=== PATIENT | male | born 1940 | race Caucasian/White ===

== ENCOUNTER → 2016-06-14 | Outpatient (CLI) | payer OTHER ==
[~2016-06-14] VITALS: Ht 182.9 cm; Wt 111.9 kg
[~2016-06-14] MED LIST: ASPIR 8181 MG PO; BACTROBAN CREAM30 G1 TOP; GABAPENTIN100 MG PO; HYDROCHLOROTH12.5 M1 PO; HYDROCHLOROTHIA25 M1 PO; IBUPROFEN 200200 M1 PO; LINZESS145 MCG PO; LISINOPRIL20 MG PO; LOTRISONE CREAM15 GM TP; MILK OF MA2400 MG/10 PO; MOBIC15 MG PO; NEXIUM40 MG PO; NORCO 5-325 TA1 EACH PO; NORVASC5 MG PO; TOPROL XL100 MG PO; TRAMADOL 50 MG50 MG PO
--- NOTE | ~2016-06-14 | HPC ---
[facility] [place] [address] PAIN MANAGEMENT CONSULTATION Name: MARITZA KENDRICK Room #: REG [place] Alex#: [id number] Admission: 06/14/16 Attend Phys: Maximiliano Ware MD Discharge: Date of : 42 Report #: [id number] THIS REPORT FOR: //name// CC: Wil Ware MD DATE OF SERVICE: 06/14/2016 Followup visit for chronic low back pain status post laminectomy with radiculopathy. The patient returns to pain clinic for epidural injection. His last visit here was over 2 years ago. He reports that injection provided him quite a bit of pain relief. Certainly not for 2 years, but the pain is now bad enough, he would like another injection. He describes an aching, sharp, numbness and weakness in his legs, it radiates to the ankles with burning. It is difficult for him to stand. He scores his intensity at 8. HISTORY OF PRESENT ILLNESS: Pain score is 8. I have spoken with his and she says that he is really having a lot of trouble getting up and standing, walking is really-really challenging. He is using a four-wheel walker. Previously, we have provided an epidural for him with good improvement. We are hopeful that today it is going to be the same that he will get some improvement in his ability to bear weight with less pain. He still has a long way to go. He is deconditioned. MEDICATIONS: Norvasc, Linzess, tramadol, ibuprofen, hydrochlorothiazide, Aspirin, Nexium, and Toprol. ALLERGIES: LUKAS INHIBITORS AND LOSARTAN. PAST MEDICAL HISTORY: Remarkable for arthritis and hypertension. PAST SURGICAL HISTORY: Remarkable for L3-L4 surgery in 12/1998. He had an inguinal hernia repair. SOCIAL HISTORY: He is retired . Denies use of tobacco or alcohol products. He lives in his own home with his , but he is becoming more and more debilitated. She has had to call Fire Department when he has fallen in the past. PHYSICAL EXAMINATION: GENERAL: He is a very affable 75-year-old and with a strong [place] accent. Shows no signs of anxiety or depression today during our discussions. VITAL SIGNS: His blood pressure is 131/66, heart rate 60 and BMI is 33.5. [address] [address] PAIN MANAGEMENT CONSULTATION Name: MIREILLEMARITZA Hong Room #: REG [facility].#: [id number] Admission: 06/14/16 Attend Phys: Maximiliano Ware MD Discharge: Date of : 42 Report #: [id number] CHEST: Clear. CARDIAC: Rhythm is regular. EXTREMITIES: He has a large panniculus. He has trouble with even getting his pants up. Standing is difficult for him at the bedside. He has trouble getting out of the chair and uses his arms to help push up. I did not have him walk because I felt that he was a fall risk. Tenderness across the low back and the scar is noted. Positive straight leg raising is present bilaterally. IMPRESSION: 1. Lumbar radiculopathy, chronic post-laminectomy syndrome. 2. Hypertension. 3. Morbid obesity. 4. Debilitation. PLAN: Epidural steroid injection at the level above his surgery. After informed consent, the patient was taken to fluoroscopic suite for treatment. He was placed prone, skin was prepped with ChloraPrep. Skin anesthetized over L2-L3 and a 20-gauge Tuohy epidural needle was advanced first attempt in the epidural space with loss of resistance. No blood or CSF aspirated. A 1 mL of Omnipaque was injected with excellent spread of dye observed in the epidural space followed by 3 mL of lidocaine mixed with 80 mg triamcinolone. He tolerated the procedure well and was observed for 45 minutes and discharged. Followup visit planned as needed. May consider another injection in the next 3-4 months depending on his response. Certainly, I do not think at this time he is a surgical candidate so whatever we can provide him in terms of his noninvasive treatments, I think it would be worthwhile. Physical therapy would be helpful, but I do not think he is really a candidate until we can get his pain more under control. By: [id number] Maximiliano Ware MD /nt
[2016-06-14 14:26] VITALS: BP 131/66
== END ==
LOC: PAIN 07:55
DX: M54.16 Radiculopathy, lumbar region (principal); M96.1 Postlaminectomy syndrome, not elsewhere classified; I10 Essential (primary) hypertension; E66.01 Morbid (severe) obesity due to excess calories; Z68.33 Body mass index [BMI] 33.0-33.9, adult

== ENCOUNTER 2017-03-21 17:30 | Inpatient (IN) | payer OTHER ==
[~2017-03-21] VITALS: Ht 182.9 cm; Wt 99.8 kg
--- NOTE | ~2017-03-21 | EKG ---
[address] [address] ELECTROCARDIOGRAM REPORT Name: MIREILLEMARITZA HAYS Room #: 402-P [facility] IN M.R.#: [id number] Admission: 03/21/17 Attend Phys: Wil Rose MD Discharge: Date of : 41 Report #: [id number] THIS REPORT FOR: //name// [facility] ED Test Date: 2017-03-21 Test Time: 18:14:13 Pat Name: MARITZA KENDRICK Department: Room: 402 Gender: M Crabbing Machine Operator: CADENCE : 1940 Requested By: Brandt Branch Order Number: [id number] MD: Philippe Boyer Measurements Intervals [place] Rate: 56 P: -21 SD: 199 QRS: -54 QRSD: 146 T: 33 QT: 490 QTc: 473 Interpretive Statements Sinus bradycardia Atrial premature complexes RBBB and LAFB Compared to ECG 10/02/2011 04:26:40 Atrial premature complex(es) now present Left anterior fascicular block now present Electronically Signed On 03-22-2017 7:54:09 NON LICENSED NUCLEAR PLANT OPERATOR by Philippe Boyer [email or web address] <ELECTRONICALLY SIGNED> By: Philippe Boyer MD, [facility] 03/22/17 0754 1814 181 Philippe Boyer MD, [facility] /EPI
[2017-03-21 17:50] VITALS: BP 171/80
[2017-03-21 18:05] LABS: URINE BLOOD 1+ (Negative); URINE CLARITY CLEAR; URINE COLOR YELLOW; URINE GLUCOSE-RANDOM* NEGATIVE (Negative); URINE KETONES 2+ (Negative); URINE LEUKOCYTES-REFLEX NEGATIVE (Negative); URINE NITRITE-REFLEX NEGATIVE (Negative); URINE PROTEIN (DIPSTICK) 2+ (Negative); URINE SPECIFIC GRAVITY 1.025 (1.005-1.035)
[2017-03-21 18:07] LABS: URINE BILIRUBIN NEGATIVE (Negative)
[2017-03-21 18:20] LABS: BACTERIA-REFLEX 1-9 Few /HPF (None Seen); CASTS None Seen /LPF (None Seen); CRYSTALS None Seen /LPF (None Seen); SQUAMOUS None Seen /LPF (0-3); URINE RBC 0-2 Rare /HPF (0-2); URINE WBC-REFLEX 0-5 Rare /HPF (0-5)
[2017-03-21 18:44] LABS: HEMATOCRIT 43.3 % (42.0-52.0); HEMOGLOBIN 16.1 gm/dL (14.0-18.0); MCH 34.6 pg (26.0-34.0); MCHC 37.2 g/dL (28.0-37.0); PLATELET COUNT 190 thou/uL (150-400); RBC 4.66 mil/uL (4.50-6.00); RDW 13.3 % (10.5-14.5); WBC 7.7 thou/uL (4.0-11.0)
[2017-03-21 19:12] LABS: ABSOLUTE NEUTROPHILS 5.6 thou/uL (1.4-8.2); ATYPICAL LYMPHS 1 %
[2017-03-21 20:08] VITALS: BP 171/80
[2017-03-21 20:24] VITALS: BP 160/88
[2017-03-21 21:30] VITALS: BP 154/91
[2017-03-22 04:00] VITALS: BP 107/55
[2017-03-22 06:21] LABS: ALBUMIN 3.3 g/dL (3.4-5.0); CREATININE 0.6 mg/dL (0.7-1.3); TOTAL BILIRUBIN 1.6 mg/dL (<0.1-1.0)
[2017-03-22 06:24] LABS: POTASSIUM 2.8 mmol/L (3.5-5.1)
[2017-03-22 07:07] VITALS: BP 165/89
[2017-03-22 15:34] VITALS: BP 156/86
[2017-03-22 20:00] VITALS: BP 146/74
[2017-03-23 04:00] VITALS: BP 155/86
[2017-03-23 07:20] VITALS: BP 149/87
[2017-03-23 09:29] LABS: HEMATOCRIT 45.6 % (42.0-52.0); HEMOGLOBIN 16.1 gm/dL (14.0-18.0); MCH 33.4 pg (26.0-34.0); MCHC 35.4 g/dL (28.0-37.0); MCV 94.4 fL (80.0-100.0); PLATELET COUNT 205 thou/uL (150-400); RBC 4.83 mil/uL (4.50-6.00); RDW 13.1 % (10.5-14.5); WBC 8.2 thou/uL (4.0-11.0)
[2017-03-23 09:36] LABS: CALCIUM 8.4 mg/dL (8.5-10.1); CREATININE 0.5 mg/dL (0.7-1.3)
[2017-03-23 09:41] LABS: POTASSIUM 2.8 mmol/L (3.5-5.1)
[2017-03-23 09:57] LABS: ABSOLUTE NEUTROPHILS 5.4 thou/uL (1.4-8.2); METAMYELOCYTES 1 %; MYELOCYTES 1 %
[2017-03-23 14:55] VITALS: BP 111/61
[2017-03-23 15:23] LABS: MAGNESIUM 1.7 mg/dL (1.8-2.4); POTASSIUM 3.3 mmol/L (3.5-5.1)
[2017-03-23 20:00] VITALS: BP 149/74
[2017-03-23 22:07] LABS: MAGNESIUM 1.7 mg/dL (1.8-2.4); POTASSIUM 3.7 mmol/L (3.5-5.1)
[2017-03-24 04:00] VITALS: BP 150/82
[2017-03-24 06:06] LABS: HEMATOCRIT 44.6 % (42.0-52.0); HEMOGLOBIN 15.9 gm/dL (14.0-18.0); MCH 33.9 pg (26.0-34.0); MCHC 35.6 g/dL (28.0-37.0); MCV 95.3 fL (80.0-100.0); RBC 4.68 mil/uL (4.50-6.00); WBC 5.1 thou/uL (4.0-11.0)
[2017-03-24 06:13] LABS: CALCIUM 8.4 mg/dL (8.5-10.1); CREATININE 0.5 mg/dL (0.7-1.3); POTASSIUM 4.1 mmol/L (3.5-5.1)
[2017-03-24 08:24] VITALS: BP 166/94
[2017-03-24 17:17] VITALS: BP 151/87
[2017-03-24 19:45] VITALS: BP 146/84
[2017-03-25 01:09] LABS: ADENOVIRUS Negative (Negative); INFLUENZA A Negative (Negative); INFLUENZA B Negative (Negative); METAPNEUMOVIRUS Negative (Negative); PARAINFLUENZA 1 Negative (Negative); PARAINFLUENZA 2 Negative (Negative); PARAINFLUENZA 3 Negative (Negative); RHINOVIRUS Negative (Negative); RSV A Negative (Negative); RSV B Negative (Negative)
[2017-03-25 04:20] VITALS: BP 165/93
[2017-03-25 07:11] VITALS: BP 160/100
[2017-03-25 07:50] VITALS: BP 160/100
[2017-03-25] MEDS ORDERED: CEFDINIR300 MG PO (13:26)
[2017-03-25] MEDS ORDERED: PREDNISONE 10 M10 MG PO (13:27)
[2017-03-25] MEDS ORDERED: DUONEB 2.5-0.5 M3 ML INH (13:27)
[2017-09-16] MEDS ORDERED: VITAMIN B-12500 MC5 SUBLING ×2 (07:50→10:12)
[2017-09-16] MEDS ORDERED: DEMADEX 2020 MG/1 TA PO ×2 (07:50→10:12)
[2017-09-16] MEDS ORDERED: ERGOCALCIF50000 UNIT PO ×2 (07:50→10:12)
[2017-09-16] MEDS ORDERED: FLOMAX0.4 MG PO (10:12)
[2017-09-16] MEDS ORDERED: FOLIC ACID 1 MG1 MG PO (10:12)
[2017-09-16] MEDS ORDERED: SYNTHROID25 MC1 PO (10:12)
[2017-09-16] MEDS ORDERED: CIPRO250 M1 PO (10:12)
[2017-09-16] MEDS ORDERED: COLACE 100 MG100 MG PO (10:12)
[2017-09-16] MEDS ORDERED: PROBIOTIC1 EAC1 PO (10:12)
[2017-09-16] MEDS ORDERED: POTASSIUM20 PO (10:12)
== END 2017-03-25 15:06 | DRG 871 ==
LOC: ER 17:30 → EROBS 19:53 → 4N 19:53
PROVIDERS: Emergency Medicine; Hospitalist; Nurse Practitioner Acute Care
DX: A41.9 Sepsis, unspecified organism (principal); J18.9 Pneumonia, unspecified organism; E87.1 Hypo-osmolality and hyponatremia; F10.10 Alcohol abuse, uncomplicated; I10 Essential (primary) hypertension; K59.00 Constipation, unspecified; E87.6 Hypokalemia; W18.39XA Other fall on same level, initial encounter; Y93.89 Activity, other specified; Y92.098 Other place in other non-institutional residence as the place of occurrence of the external cause; Z79.899 Other long term (current) drug therapy; Z88.8 Allergy status to other drugs, medicaments and biological substances; Y99.8 Other external cause status; Z28.21 Immunization not carried out because of patient refusal
CPT/HCPCS: 10091

== ENCOUNTER 2017-08-31 04:16 | Inpatient (IN) | payer OTHER ==
[~2017-08-31] VITALS: Ht 182.9 cm; Wt 103.6 kg
[2017-08-31] VITALS (7 sets, daily range): BP systolic 107–156; BP diastolic 53–83
--- NOTE | ~2017-08-31 | EKG ---
[address] [place] [address] ELECTROCARDIOGRAM REPORT Name: MIREILLEMARITZA Hal Room #: 217-P [facility] IN M.R.#: [id number] Admission: 08/31/17 Attend Phys: Ady Yañez MD Discharge: Date of : 41 Report #: [id number] THIS REPORT FOR: //name// [facility] Test Date: 2017-08-31 Test Time: 11:13:38 Pat Name: MARITZA KENDRICK Department: Room: Gender: Semiconductor Wafer Inspector: Hal CASTELAN : 1940 Requested By: Ady Yañez Order Number: [id number] MD: Philippe Boyer Measurements Intervals [place] Rate: 131 P: [place]: QRS: -51 QRSD: 146 T: 190 QT: 319 QTc: 471 Interpretive Statements Sinus bradycardia with first-degree AV block Right bundle branch block Leftward axis Artifact in multiple lead(s) Compared to ECG 08/31/2017 06:20:13 No significant change was found Electronically Signed On 08-31-2017 16:15:01 CDT by Philippe Boyer [email or web address] <ELECTRONICALLY SIGNED> By: Philippe Boyer MD, [facility] 08/31/17 1615 1113 1113 Philippe Boyer MD, [facility] /EPI
--- NOTE | ~2017-08-31 | EKG ---
[address] [place] [address] ELECTROCARDIOGRAM REPORT Name: MARITZA KENDRICK Room #: 217-P [facility] IN M.R.#: [id number] Admission: 08/31/17 Attend Phys: Ady Yañez MD Discharge: Date of : 41 Report #: [id number] THIS REPORT FOR: //name// [facility] ED Test Date: 2017-08-31 Test Time: 06:20:13 Pat Name: MARITZA WILSONIPES Department: Room: Gender: M Carpet Mechanic: chelo : 1940 Requested By: Brandt Branch Order Number: [id number] MD: Philippe Boyer Measurements Intervals [place] Rate: 142 P: [place]: QRS: -43 QRSD: 110 T: 148 QT: 299 QTc: 460 Interpretive Statements Sinus bradycardia with first-degree AV block Right bundle-branch block Electronically Signed On 08-31-2017 7:57:37 CDT by Philippe Boyer Compared to ECG 03/21/2017 18:14:13 Atrial premature complex(es) no longer present Left anterior fascicular block no longer present Electronically Signed On 09-01-2017 8:06:33 CDT by Philippe Boyer [email or web address] <ELECTRONICALLY SIGNED> By: Philippe Boyer MD, [facility] 09/01/1706 9 9 Philippe Boyer MD, [facility] /EPI
--- NOTE | ~2017-08-31 | EKG ---
[address] [place] [address] ELECTROCARDIOGRAM REPORT Name: MARITZA KENDRICK Room #: 217- ADM IN M.R.#: [id number] Admission: 08/31/17 Attend Phys: Ady Yañez MD Discharge: Date of : 42 Report #: [id number] THIS REPORT FOR: //name// [facility] Test Date: 2017-08-31 Test Time: 11:13:38 Pat Name: MARITZA KENDRICK Department: Room: 217 P Gender: M Merchandise Director: Hal CASTELAN : 1940 Requested By: Sarah Leal Order Number: [id number] MD: Philippe Boyer Measurements Intervals [place] Rate: 131 P: [place]: QRS: -51 QRSD: 146 T: 190 QT: 319 QTc: 471 Interpretive Statements Sinus bradycardia with first-degree AV block Right bundle branch block Leftward axis Artifact in multiple lead(s) Electronically Signed On 08-31-2017 16:15:01 CDT by Philippe Boyer Compared to ECG 08/31/2017 06:20:13 Left-axis deviation now present Electronically Signed On 09-01-2017 8:08:47 CDT by Philippe Boyer [email or web address] <ELECTRONICALLY SIGNED> By: Philippe Boyer MD, FAC 09/01/17 0808 1113 1113 Philippe Boyer MD, FAC /EPI
--- NOTE | ~2017-08-31 | 2DMMODE ---
[facility] [address] [place] [address] 2 D/M-MODE ECHOCARDIOGRAM Name: MARITZA KENDRICK Room #: 217-P [facility] IN .R.#: [id number] Admission: 08/31/17 Attend Phys: Ady Yañez MD Discharge: Date of : 42 Date of Service: 09/01/17 1253 Report #: [id number] THIS REPORT FOR: //name// APPROVED REPORT Study performed: 09/01/2017 09:12:01 EXAM: Comprehensive 2D, Doppler, and color-flow Echocardiogram Patient Location: Echo lab Room #: [facility] Status: routine BSA: 2.31 HR: 57 bpm BP: 151/61 mmHg Other Information Study Quality: Technically Difficult Technically limited study due to body habitus. Indications Atrial Fibrillation Hypertension/HDD Echo Enhancing Agent Indication: Endocardial border delineation Agent(s) / Amount(s) Used: Optison 3 cc 2D Dimensions RVDd: 37.75 mm LVEF(%): 64.45 (>50%) IVSd: 12.19 (7-11mm) LVOT Diam: 28.39 (18-24mm) LVDd: 49.30 mm PWd: 11.51 (7-11mm) Ascending Ao: 29.12 (22-36mm) LVDs: 31.91 (25-40mm) Aortic Root: 33.84 mm IVC: 23.00 mm Franklin's LVEF: 64.45 % Volumes Left Atrial Volume (Systole) Single Plane 4CH: 62.30 mL Single Plane 2CH: 38.96 mL LA ESV Index: 25.00 mL/m2 Aortic Valve AoV Peak Arun.: 1.61 m/s AO Peak Gr.: 10.54 mmHg LVOT Max P.92 mmHg LVOT Max V: 1.32 m/s [facility] [place] [address] 2 D/M-MODE ECHOCARDIOGRAM Name: MARITZA KENDRICK Room #: 217-P [facility] IN .R.#: [id number] Admission: 08/31/17 Attend Phys: Ady Yañez MD Discharge: Date of : 42 Date of Service: 09/01/17 1253 Report #: [id number] DAVIDE Vmax: 5.18 cm2 Mitral Valve E/A Ratio: 1.2 MV Decel. Time: 212.40 ms MV E Max Arun.: 1.04 m/s MV A Arun.: 0.86 m/s MV PHT: 61.59 ms IVRT: 87.66 ms Pulmonary Valve PV Peak Arun.: 1.30 m/s PV Peak Gr.: 6.74 mmHg Pulmonary Vein P Vein S: 0.35 m/s P Vein A: 0.13 m/s P Vein D: 0.48 m/s P Vein A Dur.: 124.6 msec P Vein S/D Ratio: 0.73 Tricuspid Valve RAP Estimate: 10.00 mmHg Left Ventricle The left ventricle is normal size. Regional wall motion is not well visualized but grossly normal. Mild concentric left ventricular hypertrophy. The left ventricular systolic function is normal. The left ventricular ejection fraction is within the normal range. LVEF is 60-65%. Grade II - pseudonormal filling dynamics. Right Ventricle The right ventricle is normal size. Right ventricular function cannot be assessed due to poor image quality. Atria The left atrium size is normal. Right atrium is borderline dilated. Aortic Valve The aortic valve is not well visualized. No aortic regurgitation is present. There is no aortic valvular stenosis. Mitral Valve Mild mitral annular calcification Trace mitral regurgitation per doppler. No evidence of mitral valve stenosis. Tricuspid Valve The tricuspid valve is normal in structure. Trace tricuspid [facility] [address] [place] [address] 2 D/M-MODE ECHOCARDIOGRAM Name: MARITZA KENDRICK Room #: 217-P [facility] IN .R.#: [id number] Admission: 08/31/17 Attend Phys: Ady Yañez MD Discharge: Date of : 41 Date of Service: 09/01/17 1253 Report #: [id number] regurgitation. Unable to assess PA pressure. Pulmonic Valve Pulmonic valve is not well visualized. Great Vessels The aortic root is normal in size. IVC is dilated and collapses >50% with inspiration. Pericardium There is no pericardial effusion. <Conclusion> The left ventricular systolic function is normal. Regional wall motion is not well visualized but grossly normal. LVEF is 60-65%. Moderate diastolic dysfunction The aortic valve is not well visualized. No aortic regurgitation or stenosis Mild mitral annular calcification Trace mitral regurgitation per doppler. There is no pericardial effusion. <ELECTRONICALLY SIGNED> By: Philippe Boyer MD, FACC 09/01/17 1253 1253 1253 Philippe Boyer MD, FACC /INF
--- NOTE | ~2017-08-31 | HC ---
[facility] [place] [address] [place] [address] CONSULTATION Name: MARITZA KENDRICK Room #: 217-P [facility] IN M.R.#: [id number] Admission: 08/31/17 Attend Phys: Ady Yañez MD Discharge: Date of : 41 Report #: [id number] THIS REPORT FOR: //name// CC: Wil Yañez REASON FOR PRESENTATION: Dizziness. REASON FOR CONSULTATION: Hyponatremia. HISTORY OF PRESENT ILLNESS: This is a 76-year-old with past medical history of hypertension. He has no known kidney disease. He is not aware of heart problems; however, he is known to have AFib. It does look like that he had some issues with his alcohol abuse and intake in the past. Serum alcohol on presentation was elevated at 106. He woke up this morning and felt somewhat dizzy. No syncopal episode. No seizure activities. No mental status changes. He was found to have a sodium of 111 and I am consulted to manage him. Of note, this is the fact that the patient is currently maintained on hydrochlorothiazide, ibuprofen on top of his alcohol drinking habits. He previously was hospitalized in this facility with a sodium of 117 that had corrected to 121 upon discharge. He tells me that he is not known to have heart failure. However, he did report to bilateral lower extremity edema that has been getting worse in the last few days. He is not aware of any previous heart failure issues. No echo is available. He did have some mild cardiomegaly with effusion on the chest x-ray. PAST MEDICAL HISTORY: 1. Hypertension. 2. AFib. 3. Inguinal hernia. 4. L3-L4 surgery. 5. GERD or reflux. 6. Chronic pain. MEDICATIONS: 1. Esomeprazole. 2. Hydrochlorothiazide. 3. Aspirin. 4. Ibuprofen. 5. Tramadol. ALLERGIES: 1. LUKAS INHIBITORS. 2. LOSARTAN. SOCIAL HISTORY: There is a mention that he used to drink about half a pint of whiskey every day in the last admission. No drug abuse. [facility] [address] [place] [address] CONSULTATION Name: MARITZA KENDRICK Room #: 217[facility] IN M.R.#: [id number] Admission: 08/31/17 Attend Phys: Ady Yañez MD Discharge: Date of : 41 Report #: [id number] FAMILY HISTORY: Significant for hypertension. REVIEW OF SYSTEMS: GENERAL: Significant for weakness, dizziness. CARDIOVASCULAR: No chest pain or palpitation, but significant lower extremity edema. PULMONARY: Significant dyspnea on exertion. GASTROINTESTINAL: No nausea or vomiting. GENITOURINARY: No frequency, no urgency. MUSCULOSKELETAL: Occasional back pain. NEUROLOGICAL: As per the history of present illness. PHYSICAL EXAMINATION: VITAL SIGNS: Blood pressure is 126/68, temperature 36.5, pulse rate is 50. He has regular rhythm. CHEST: No crackles. CARDIOVASCULAR: Regular with no rub. ABDOMEN: Soft, nontender. LOWER EXTREMITIES: +2 edema. LABORATORY DATA: Reviewed. Serum alcohol level was 106. Chemistry values reviewed. Sodium 111, potassium 4.1, chloride 80, BUN of 12, creatinine 0.8. IMAGING: Chest x-ray reviewed, mild cardiomegaly. ASSESSMENT, IMPRESSION, PLAN: 1. Acute hyponatremia. 2. Alcohol abuse. 3. Atrial fibrillation with bradycardia. 4. His hyponatremia is probably due to a combination of factors including alcohol, nonsteroidal anti-inflammatory, medication usage, hydrochlorothiazide. He also has evidence of hypervolemia on my examination with his lower extremity edema. 4. I will start the appropriate workup for his hyponatremia. Counseled about alcohol abuse. 5. Discontinue hydrochlorothiazide and ibuprofen. 6. Gentle diuresis. 7. No IV fluid. 8. Cardiac echo to [place] [address] CONSULTATION Name: MARITZA KENDRICK Room #: 217-P ADM IN M.R.#: [id number] Admission: 08/31/17 Attend Phys: Ady Yañez MD Discharge: Date of : 41 Report #: [id number] 9. Defer the management of his other issues including thyroid, hypertension, and atrial fibrillation to the admitting team. By: 1022 1317 Louis Sosa MD /nt
--- NOTE | ~2017-08-31 | EKG ---
[address] [address] ELECTROCARDIOGRAM REPORT Name: MIREILLEMARITZA Hong Room #: 217-P ADM IN M.R.#: [id number] Admission: 08/31/17 Attend Phys: Ady Yañez MD Discharge: Date of : 41 Report #: [id number] THIS REPORT FOR: //name// [facility] Test Date: 2017-09-01 Test Time: 06:57:22 Pat Name: MARITZA KENDRICK Department: Room: 217 P Gender: M Dispensing And Measuring Optician: AGUSTIN : 1940 Requested By: Sarah Leal Order Number: [id number] MD: Philippe Boyer Measurements Intervals [place] Rate: 59 P: [place]: QRS: -53 QRSD: 146 T: 31 QT: 473 QTc: 469 Interpretive Statements Sinus rhythm with first-degree AV block RBBB and LAFB Compared to ECG 03/21/2017 18:14:13 No significant change was found Electronically Signed On 09-01-2017 8:19:09 CDT by Philippe Boyer [email or web address] <ELECTRONICALLY SIGNED> By: Philippe Boyer MD, [facility] 09/01/17 0819 0657 0657 Philippe Boyer MD, [facility] /EPI
[~2017-08-31 04:16] MED LIST changes: +CEFDINIR300 MG PO; +DUONEB 2.5-0.5 M3 ML INH; +PREDNISONE 10 M10 MG PO
[2017-08-31] MEDS ORDERED: HYDROCHLOROTHIA25 M2 PO (04:36)
[2017-08-31] MEDS ORDERED: MILK OF MA2400 MG/10 PO (04:38)
[2017-08-31 06:24] LABS: HEMATOCRIT 43.1 % (42.0-52.0); HEMOGLOBIN 14.8 gm/dL (14.0-18.0); MCH 32.3 pg (26.0-34.0); MCHC 34.3 g/dL (28.0-37.0); MCV 94.3 fL (80.0-100.0); PLATELET COUNT 157 thou/uL (150-400); RBC 4.57 mil/uL (4.50-6.00); RDW 13.5 % (10.5-14.5); WBC 7.2 thou/uL (4.0-11.0)
[2017-08-31 06:33] LABS: ANION GAP 5 mmol/L (7-16); BUN 12 mg/dL (7-18); CALCIUM 8.9 mg/dL (8.5-10.1); CHLORIDE 80 mmol/L (98-107); CO2 26 mmol/L (21-32); CREATININE 0.8 mg/dL (0.7-1.3); GLUCOSE 94 mg/dL (74-106); POTASSIUM 4.1 mmol/L (3.5-5.1)
[2017-08-31 06:38] LABS: SODIUM 111 mmol/L (136-145)
[2017-08-31 06:42] LABS: TROPONIN-I <0.06 ng/mL (<0.06)
[2017-08-31 08:15] LABS: URINE BILIRUBIN NEGATIVE (Negative); URINE BLOOD TRACE (Negative); URINE CLARITY CLEAR; URINE COLOR YELLOW; URINE GLUCOSE-RANDOM* NEGATIVE (Negative); URINE KETONES NEGATIVE (Negative); URINE LEUKOCYTES-REFLEX NEGATIVE (Negative); URINE NITRITE-REFLEX NEGATIVE (Negative); URINE PROTEIN (DIPSTICK) TRACE (Negative)
[2017-08-31 08:26] LABS: PLATELET ESTIMATE NORMAL
[2017-08-31 09:27] LABS: AMP/METHAMP Negative (Negative); BARBITURATES Negative (Negative); BENZODIAZEPINES Negative (Negative); COCAINE Negative (Negative); METHADONE Negative (Negative); OPIATES POSITIVE (Negative); PCP Negative (Negative)
[2017-08-31 09:51] LABS: MAGNESIUM 1.9 mg/dL (1.8-2.4); PHOSPHORUS 3.9 mg/dL (2.5-4.9)
[2017-08-31 10:25] LABS: FOLIC ACID 6.3 ng/mL (8.6-58.9); TSH 3.951 uIU/mL (0.358-3.740)
[2017-08-31 11:01] LABS: URINE CREATININE-RANDOM* 149.7 mg/dL
[2017-08-31 16:27] LABS: CALCIUM 8.6 mg/dL (8.5-10.1); CREATININE 0.6 mg/dL (0.7-1.3); POTASSIUM 4.2 mmol/L (3.5-5.1)
[2017-08-31 22:16] LABS: CALCIUM 8.5 mg/dL (8.5-10.1); CREATININE 0.6 mg/dL (0.7-1.3); POTASSIUM 4.2 mmol/L (3.5-5.1)
[2017-09-01] VITALS (8 sets, daily range): BP systolic 127–154; BP diastolic 61–79
[2017-09-01 03:04] LABS: CALCIUM 8.3 mg/dL (8.5-10.1); CREATININE 0.5 mg/dL (0.7-1.3); PHOSPHORUS 3.9 mg/dL (2.5-4.9); POTASSIUM 4.3 mmol/L (3.5-5.1)
[2017-09-01 10:05] LABS: HEMATOCRIT 43.2 % (42.0-52.0); HEMOGLOBIN 14.7 gm/dL (14.0-18.0); MCH 32.4 pg (26.0-34.0); MCV 95.2 fL (80.0-100.0); RBC 4.54 mil/uL (4.50-6.00); RDW 13.5 % (10.5-14.5); WBC 6.8 thou/uL (4.0-11.0)
[2017-09-02 04:38] VITALS: BP 139/65
[2017-09-02 04:39] LABS: HEMATOCRIT 42.4 % (42.0-52.0); HEMOGLOBIN 14.6 gm/dL (14.0-18.0); MCH 32.3 pg (26.0-34.0); MCHC 34.5 g/dL (28.0-37.0); MCV 93.8 fL (80.0-100.0); PLATELET COUNT 166 thou/uL (150-400); RBC 4.52 mil/uL (4.50-6.00); RDW 13.4 % (10.5-14.5); WBC 8.1 thou/uL (4.0-11.0)
[2017-09-02 05:01] LABS: ALBUMIN 3.2 g/dL (3.4-5.0); CALCIUM 8.8 mg/dL (8.5-10.1); CREATININE 0.6 mg/dL (0.7-1.3); MAGNESIUM 1.6 mg/dL (1.8-2.4); PHOSPHORUS 3.6 mg/dL (2.5-4.9)
[2017-09-02 07:04] LABS: ABSOLUTE NEUTROPHILS 5.3 thou/uL (1.4-8.2); ATYPICAL LYMPHS 2 %; PLATELET ESTIMATE NORMAL
[2017-09-02 08:13] VITALS: BP 132/66
[2017-09-02 08:14] VITALS: BP 122/67; BP 132/66; BP 87/66
[2017-09-02 11:29] VITALS: BP 130/68
[2017-09-02 17:03] VITALS: BP 129/66
[2017-09-02 21:03] VITALS: BP 155/79
[2017-09-03 04:11] VITALS: BP 143/76
[2017-09-03 04:39] LABS: ALBUMIN 3.3 g/dL (3.4-5.0); CALCIUM 8.8 mg/dL (8.5-10.1); CREATININE 0.7 mg/dL (0.7-1.3); POTASSIUM 4.1 mmol/L (3.5-5.1)
[2017-09-03 07:59] VITALS: BP 134/66
[2017-09-03 18:01] VITALS: BP 141/63
[2017-09-03 20:55] VITALS: BP 161/62
[2017-09-04 04:45] VITALS: BP 145/72
[2017-09-04 04:47] LABS: ALBUMIN 3.1 g/dL (3.4-5.0); CALCIUM 8.8 mg/dL (8.5-10.1); CREATININE 0.6 mg/dL (0.7-1.3); PHOSPHORUS 4.9 mg/dL (2.5-4.9)
[2017-09-04 12:46] VITALS: BP 135/65
[2017-09-04 19:45] VITALS: BP 161/66
[2017-09-05 02:05] LABS: GLYCOHEMOGLOBIN (HGB A1C) 5.5 % (4.8-5.6)
[2017-09-05 04:01] LABS: ALBUMIN 3.3 g/dL (3.4-5.0); CREATININE 0.8 mg/dL (0.7-1.3); PHOSPHORUS 4.5 mg/dL (2.5-4.9); POTASSIUM 3.9 mmol/L (3.5-5.1)
[2017-09-05 08:05] VITALS: BP 148/84
[2017-09-05 12:35] VITALS: BP 148/82
[2017-09-05 13:07] LABS: URINE BILIRUBIN NEGATIVE (Negative); URINE BLOOD NEGATIVE (Negative); URINE CLARITY CLEAR; URINE COLOR YELLOW; URINE GLUCOSE-RANDOM* NEGATIVE (Negative); URINE KETONES NEGATIVE (Negative); URINE LEUKOCYTES NEGATIVE (Negative); URINE NITRITE NEGATIVE (Negative); URINE PROTEIN (DIPSTICK) NEGATIVE (Negative); URINE UROBILINOGEN 0.2 E.U./dl (0.2-1.0)
[2017-09-05 13:13] LABS: URINE CREATININE-RANDOM* 55.5 mg/dL
[2017-09-05 15:35] VITALS: BP 154/83
[2017-09-05 19:56] VITALS: BP 151/78
[2017-09-05 22:56] VITALS: BP 151/78
[2017-09-06 03:48] VITALS: BP 146/83
[2017-09-06 04:38] LABS: CALCIUM 8.9 mg/dL (8.5-10.1); CREATININE 0.7 mg/dL (0.7-1.3); PHOSPHORUS 4.6 mg/dL (2.5-4.9); POTASSIUM 3.9 mmol/L (3.5-5.1)
[2017-09-06 07:35] VITALS: BP 154/80
[2017-09-06 12:00] VITALS: BP 148/74
[2017-09-06 15:10] VITALS: BP 149/84
[2017-09-06] MEDS ORDERED: DEMADEX 2020 MG/1 TA PO (15:10)
[2017-09-06] MEDS ORDERED: SENNA8.6 MG PO (15:10)
[2017-09-06] MEDS ORDERED: VITAMIN B-1100 M2 PO (15:10)
[2017-09-06] MEDS ORDERED: VITAMIN B-12500 MC5 SUBLING (15:10)
[2017-09-06] MEDS ORDERED: COLACE 100 MG100 MG PO (15:10)
[2017-09-06] MEDS ORDERED: SODIUM CHLORIDE1 GM PO (15:10)
[2017-09-06] MEDS ORDERED: FOLIC ACID 1 MG1 MG PO (15:10)
[2017-09-06] MEDS ORDERED: BISAC-EVAC10 MG RECTAL (15:10)
[2017-09-06] MEDS ORDERED: SYNTHROID25 MC1 PO (15:42)
== END 2017-09-06 19:59 | DRG 640 ==
LOC: ER 04:16 → EROBS 07:42 → 2N 07:42
PROVIDERS: Emergency Medicine; Hospitalist
DX: E87.1 Hypo-osmolality and hyponatremia (principal); N17.0 Acute kidney failure with tubular necrosis; I50.32 Chronic diastolic (congestive) heart failure; I48.91 Unspecified atrial fibrillation; N40.0 Benign prostatic hyperplasia without lower urinary tract symptoms; K21.9 Gastro-esophageal reflux disease without esophagitis; I11.0 Hypertensive heart disease with heart failure; W01.0XXA Fall on same level from slipping, tripping and stumbling without subsequent striking against object, initial encounter; K58.9 Irritable bowel syndrome, unspecified; G89.29 Other chronic pain; E66.9 Obesity, unspecified; E03.9 Hypothyroidism, unspecified; I44.0 Atrioventricular block, first degree; I45.10 Unspecified right bundle-branch block; R53.81 Other malaise; F10.129 Alcohol abuse with intoxication, unspecified; Y90.9 Presence of alcohol in blood, level not specified; K59.00 Constipation, unspecified; S80.212A Abrasion, left knee, initial encounter; S80.211A Abrasion, right knee, initial encounter; M25.511 Pain in right shoulder; R26.89 Other abnormalities of gait and mobility; M54.16 Radiculopathy, lumbar region; Z88.8 Allergy status to other drugs, medicaments and biological substances; Z79.899 Other long term (current) drug therapy; Y93.89 Activity, other specified; Z82.49 Family history of ischemic heart disease and other diseases of the circulatory system; Y99.8 Other external cause status; Z68.31 Body mass index [BMI] 31.0-31.9, adult; Y92.091 Bathroom in other non-institutional residence as the place of occurrence of the external cause
CPT/HCPCS: 10081

== ENCOUNTER 2019-09-22 23:19 | Emergency (ER) | payer OTHER ==
[~2019-09-22] VITALS: Ht 182.9 cm; Wt 104.3 kg
[~2019-09-22 23:19] MED LIST changes: +BISAC-EVAC10 MG RECTAL; +CIPRO250 M1 PO; +COLACE 100 MG100 MG PO; +DEMADEX 2020 MG/1 TA PO; +ERGOCALCIF50000 UNIT PO; +FLOMAX0.4 MG PO; +FOLIC ACID 1 MG1 MG PO; +HYDROCHLOROTHIA25 M2 PO; +POTASSIUM20 PO; +PROBIOTIC1 EAC1 PO; +SENNA8.6 MG PO; +SODIUM CHLORIDE1 GM PO; +SYNTHROID25 MC1 PO; +VITAMIN B-1100 M2 PO; +VITAMIN B-12500 MC5 SUBLING
[2019-09-22] MEDS ORDERED: OXYBUTYNIN 5 MG5 M2 PO (23:57)
[2019-09-22] MEDS ORDERED: OMEPRAZOLE40 MG PO (23:57)
[2019-09-23 01:22] VITALS: BP 185/97
== END 2019-09-23 01:37 | disposition home or self-care (01) ==
LOC: ER 23:19
DX: R51 Headache (principal); I10 Essential (primary) hypertension; Z79.82 Long term (current) use of aspirin; Z79.899 Other long term (current) drug therapy; Z88.8 Allergy status to other drugs, medicaments and biological substances; W10.9XXA Fall (on) (from) unspecified stairs and steps, initial encounter; Y93.89 Activity, other specified; Y92.89 Other specified places as the place of occurrence of the external cause; Y99.8 Other external cause status